=== PATIENT | female | born 1980 | race African-American/Black ===

== ENCOUNTER → 2023-09-17 | Outpatient (CLI) | payer SELFPAY | END | disposition home or self-care (01) | DX: R63.4 Abnormal weight loss (principal); Z68.25 Body mass index [BMI] 25.0-25.9, adult | CPT/HCPCS: 76499 ==

== ENCOUNTER → 2024-05-19 | Outpatient (CLI) | payer SELFPAY | END | disposition home or self-care (01) | DX: Z00.00 Encounter for general adult medical examination without abnormal findings (principal); Z68.24 Body mass index [BMI] 24.0-24.9, adult | CPT/HCPCS: 76499 ==